=== PATIENT | female | born 1995 | race Caucasian/White ===

== ENCOUNTER 2018-10-20 09:10 | Emergency (ER) | payer OTHER, MEDICAID, SELFPAY ==
[2018-10-20 09:11] VITALS: BP 157/81; PULSE 99; RESP 16; TEMP 36.4; O2SAT 98; BMI 31.6
--- NOTE | 2018-10-20 09:24 | US_ITS ---
STUDY: FIRST TRIMESTER OBSTETRICAL ULTRASOUND REASON FOR EXAM: Female, 23 years old. Bleeding. LMP: September 16, 2018. TECHNIQUE: Transvaginal TECHNICAL QUALITY: Adequate. PRIOR ULTRASOUND: None. FINDINGS: There is no demonstrated intrauterine gestational sac. There is no demonstrated yolk sac. The placenta is non-visualized. There is no demonstrated embryo ( pole). The estimated gestation age (EGA) by LMP is 4 weeks, 6 days. The estimated date of delivery (PINA) by LMP is June 23, 2019. The uterus measures 8.8 cm x 5.3 cm x 4.2 cm. The endometrium measures 5 mm. There is no demonstrated uterine fibroid. The cervix is closed. The right ovary measures 3.8 cm x 2.5 cm x 2.1 cm. There is no right ovarian cyst. There is no visualized right adnexal mass or complex lesion. The left ovary measures 3.8 cm x 3.6 cm x 1.6. There is no left ovarian cyst. There is no visualized left adnexal mass or complex lesion. There is no fluid in the cul de sac. US/Transvaginal w/Preg US IMPRESSION: No intrauterine gestational sac is seen. Electronically Signed: Joshua Kaye, at 11:04 EDT , Service support ,
--- NOTE | 2018-10-20 09:25 | ED.DCSUM_ITS ---
- ER Visit Summary Date of Service: 10/20/18 Chief Complaint: Vaginal bleeding History of Present Illness: The patient is a 23 F who goes to the [facility]. She reports that her last menstrual period was September 16. She took a test earlier this week and it was positive. She states that she began having vaginal bleeding this morning. She is having to change a liner pad every 20 minutes. This is heavier than her typical period. She reports that she does have cramping suprapubic pain that is 6 out of 10 at worst and 5-10 currently. This is worsened by nothing and relieved by nothing. She reports this is similar to when she had a miscarriage in the past. Patient is a with a history of 1 miscarriage. Her blood type is O+. Patient denies dysuria or frequency. Physical Examination: Vitals: Stable. Afebrile. General: Well-nourished and well-developed. Head: Normocephalic atraumatic. Neck: Supple, no lymphadenopathy. No JVD. Nontender. Cardiovascular: Regular rate and rhythm. No murmurs. Respiratory: No respiratory distress. Clear to auscultation bilaterally. Abdominal: Soft, mild suprapubic tenderness to palpation., nondistended, normal bowel sounds. No guarding, rebound, or peritoneal signs. Back: Nontender. Extremities: Nontender, no edema. Skin: Normal color, no rash. Neurologic: Alert and oriented ?3. Cranial nerves II through XII are intact. Normal strength and sensation. Psych: Normal affect. Test Results: Quantitative hCG is 4. Clinical Impression(s) from Imaging Studies Obstetrics Ultrasound 10/20/18 09:24 IMPRESSION: No intrauterine gestational sac is seen. Electronically Signed: Joshua Kaye, at 11:04 EDT , Service support , Emergency Department Course and Treatment: Patient had an IV placed. She was given a liter of normal saline. She is resting comfortably. She refused pain medications. Treatment Plan: At this time I suspect the patient had failure of implantation of her . She will be discharged with instructions to follow-up with the [facility] in 1 week for another exam. Return to the emergency department for any worsening symptoms. Disposition: To home in improved and stable condition. Impression: 1. Vaginal bleeding. This note was generated with [employer] dictation software. It may contain incorrect words, spelling, and punctuation that were not noted in review of the chart prior to signing ED Disposition - Plan for ED Patient: Disposition: Home or Assisted Living Instructions: Discharge Instructions for Miscarriage Referrals: Kim Mir CNM [Certified Nurse Manager Machine] - 1 Week
[2018-10-20] MEDS: 0.9% Normal Saline 1,000 ML 1000 ML IV (09:43)
[2018-10-20 10:06] LABS: hCG Titer Quant., Serum 4 mIU/mL (<9 non-preg)
== END 2018-10-20 11:14 | disposition home or self-care (01) ==
LOC: ED 10:32
PROVIDERS: Emergency Provider Emergency Medicine
DX: N93.9 Abnormal uterine and vaginal bleeding, unspecified (principal)
CPT/HCPCS: 76817; 84702; 96360; 99283; J7030

== ENCOUNTER 2019-08-16 02:30 | Outpatient (CLI) | payer OTHER, MEDICAID, SELFPAY ==
[2019-08-16 03:47] VITALS: BMI 38.7
--- NOTE | 2019-08-16 08:46 | OB.TRI.NOTE ---
- Problem List (1) Uterine contractions during Status: Acute (2) 38 weeks gestation of Status: Acute History of Present Illness Date of Service: 08/15/19 Was patient seen by the physician?: No Reason For Visit: R/O LABOR Date of Service: 08/15/19 Final PINA: 08/24/19 Final PINA Source: LMP Gestational age: 38 Weeks and 6 Days History of Present Illness: presents for rule out labor at 38 wk gestation Allergies No Known Allergies Allergy (Verified 08/16/19 03:50) NST - FHR Rate Baby A Baseline: 130 Variability:: Moderate Accelerations:: 15 x 15 Decelerations:: None NST Reactive:: Yes FHR Category:: Category I Uterine Activity:: Irritability Impression/Plan NST reactive Labor ruled out
== END 2019-08-16 05:30 | disposition home or self-care (01) ==
LOC: WPOUT 03:26 → WP 03:27
PROVIDERS: Visit Provider Obstetrics & Gynecology
DX: O62.9 Abnormality of forces of labor, unspecified (principal); Z3A.38 38 weeks gestation of pregnancy
CPT/HCPCS: 59025; 59050; 99218; G0378

== ENCOUNTER 2019-08-17 01:34 | Inpatient (IN) | payer OTHER, MEDICAID, SELFPAY ==
[2019-08-16 03:47] VITALS: BMI 38.7
[2019-08-17] MEDS: Lactated Ringers 1,000 ML 200 ML IV (03:30)
[2019-08-17 03:31] VITALS: BMI 38.7
[2019-08-17 03:54] LABS: Absolute Lymphocyte Count 2.73 X10^3/uL (0.83-4.51); Absolute Neutrophil Count 6.9 X10^3/uL (2.0-7.7); Basophil# 0.02 X10^3/uL; Basophil% 0.2 % (0-1); Eosinophil# 0.04 X10^3/uL; Eosinophils% 0.4 % (0-5); Hematocrit 40.1 % (37-47); Hemoglobin 13.1 g/dL (12.0-15.0); Lymphocyte # 2.73 X10^3/ul (4.0); Lymphocyte % 26.1 % (19-41); Mean Corp Hgb Conc 32.7 g/dL (32-36); Mean Corpuscular Hgb 29.8 pg (27.0-32.0); Mean Corpuscular Volume 91.1 fL (81-99); Mean Platelet Vol. 11.5 fl (6.2-12.0); Monocyte# 0.76 X10^3/uL; Monocyte% 7.3 % (0-10); NRBC Flagged by Analyzer 0 % (0-5); Neutrophil % 65.8 % (47-70); Platelet Count 188 K/mm3 (150-450); RBC Distribution Width CV 13.7 % (11.6-14.6); RBC Distribution Width SD 45.7 fl (35.1-43.9); White Blood Count 10.5 K/mm3 (4.4-11.0)
[2019-08-17] MEDS: Lactated Ringers 500 ML 999 ML IV ×2 (07:28→08:28)
[2019-08-17] MEDS: Lactated Ringers 1,000 ML 50 ML IV (07:30)
--- NOTE | 2019-08-17 08:41 | PCM.HP.OB ---
- Problem List (1) History of delivery Status: Acute (2) Obesity affecting Status: Acute (3) History of precipitous delivery Status: Acute History Date of Admission: 08/17/19 Final PINA: 08/24/19 Final PINA Source: US <20 weeks Gestational age: 39 Weeks and 0 Days History of this : This is a 24 year-old, G[4], P[1112], at 39 weeks with PROM at 2330, clear fluid. uncomplicated Allergies No Known Allergies Allergy (Verified 08/17/19 06:13) Home Medications: Home Medications Vits [Prenatabs FA] 1 tablet PO DAILY 10/20/18 Smoking Status: Never smoker Alcohol: None Number of Fetus(es): 1 NST - FHR Rate Baby A Baseline: 135 Variability:: Minimal FHR Category:: Category II Uterine Activity:: Every 4 minutes History Past Pregnancies: Past Pregnancies Delivery Date Name GA/ Weeks Outcome Route Wt Sex Labor Length Anesthesia Delivery Location Provider FOB Labs: Mom's Problem List Problem Status Onset Code History of delivery Acute Z87.51 Obesity affecting Acute O99.210 History of precipitous delivery Acute Z87.59 Mom's Labs & Results 08/17/19 08/17/19 03:30 03:30 WBC 10.5 RBC 4.40 Hgb 13.1 Hct 40.1 MCV 91.1 MCH 29.8 MCHC 32.7 RDW Std Deviation 45.7 H RDW Coeff of Jerrica 13.7 Plt Count 188 MPV 11.5 Immature Gran % (Auto) 0.200 Neut % (Auto) 65.8 Lymph % (Auto) 26.1 Gila % (Auto) 7.3 Eos % (Auto) 0.4 Baso % (Auto) 0.2 Absolute Neuts (auto) 6.9 Absolute Lymphs (auto) 2.73 Nucleated RBC % 0 Blood Type O POSITIVE Antibody Screen NEGATIVE Course Did the patient receive Yes care? Labs Blood Type: O RH: POSITIVE RPR/VDRL/Syphilis Nonreactive Rubella status Immune HbSAg Negative Date Done: 02/12/19 Chlamydia Negative Gonorrhea Negative HIV/AIDS Non-Reactive Group B Strep: Negative Current Obstetrical History Gestational Diabetes No Incompetent Cervix No Infertility No IUGR No Macrosomia No Hypertension/Pre-eclampsia No Placenta Previa/Abruption No PTL/PROM No Uterine anomaly No Oligohydramnios No Polyhydramnios No Multiple gestation No Past Medical History Asthma No Diabetes No Hypertension No Heart disease No Mitral valve prolapse No Neurologic/Seizure disorder/ No Migraines Kidney disease No Liver disease No Varicosities No Clotting disorders/Hx of DVT No Thyroid Dysfunction No Other medical diseases No Psychiatric disorders No Major trauma No Abnormal PAP smear No Sleep apnea No Mammogram in the last 2 years No Social History Marital Status: Alleged father Zachariah Hx Smoking No Smoking Status Never smoker Expected Infant Delivery Method: Spontaneous Vaginal Review of Systems Constitutional: Denies: Chills, Fever, Weight Change HEENT: Denies: Head Aches Cardiovascular: Denies: Chest Pain, Palpitations Respiratory: Denies: Cough, Shortness of breath at rest, Sputum production Gastrointestinal: Denies: Abdominal Pain, Nausea, Vomiting Genitourinary: Denies: Dysuria Neurological: Denies: Numbness, Tingling, Focal weakness Psychiatric: Denies: Anxiety, Depression, Homicidal Ideations, Suicidal Ideations Physical Exam General: Alert, Oriented x3, Cooperative HEENT: Atraumatic, Normocephalic Cardiovascular: Regular rate, Regular Rhythm, No murmurs Lungs: Clear to auscultation, Normal air movement, No rhonchi, No wheeze Abdomen: Bowel Sounds Present, Gravid Extremities:: No edema COMPOSITION FLOOR SETTER: Normal external genitalia. Negative for: Vulvar lesions Estimated gestational size: Appropriate for gestational size Presentation: Cephalic Cervix Dilation (cm): 6 - vertex Station: -2 Effacement (%): 60 - Comfortable with epidural Assessment/Plan All Active Problems Uterine contractions during (Acute) 38 weeks gestation of (Acute) History of delivery (Acute) Obesity affecting (Acute) History of precipitous delivery (Acute) Term (Acute) This is a 24 year-old, G [4], P [1112], at 39 weeks gestational age Premature Rupture of Membranes Active Labor, progressing P: 1) Admit to labor and delivery. IV fluids per protocol 2) Admission labs 3) GBS negative 4) Epidural for pain management 5) notified of patient admission and status.
[2019-08-17] MEDS: fentaNYL-bupivacaine (epidural) 100 ML BAG EPIDURAL (08:51)
[2019-08-17] MEDS: Oxytocin 30 units/NS 500 ml 30 UNITS/500 ML IV.SOLN IV (09:45)
[2019-08-17] MEDS: Oxytocin 30 units/NS 500 ml 30 UNITS/500 ML IV.SOLN 334 UNITS IV (10:50)
--- NOTE | 2019-08-17 11:04 | OP.PCM_ITS ---
Problem List (1) History of delivery Status: Acute (2) Obesity affecting Status: Acute (3) History of precipitous delivery Status: Acute (4) Vaginal delivery Status: Acute (5) Shoulder dystocia, delivered Status: Acute Vaginal Delivery Maternal Presentation: Spontaneous Rupture of Membranes Amniotic Membrane Rupture Type: Spontaneous at home Amniotic Fluid Description: Clear Final PINA: 08/24/19 Gestational age: 39 Weeks and 0 Days Date of Procedure: 08/17/19 Pre-Operative Diagnosis: PROM Post-Operative Diagnosis: Surgery/ Procedure Performed: Spontaneous Vaginal Delivery Type of Anesthesia: Epidural Description of Procedure: Progressed to complete with urge to push and +1 station. Strong pushing efforts and descent with initial pushing. Called nursery staff to room for anticipation of delivery soon. Pushing efforts to and then maternal effort diminished and became drowsy with eyes closing. Opened eyes to commands but drowsy and poorly following commands to push. Infant head delivered with shoulder's not forthcoming. Staff assist alerted for extra help. McRobert's position and poor maternal pushing efforts. Suprapubic pressure applied. Internal maneuvers attempted and still limited maternal pushing efforts. D elivered right posterior arm without difficulty. Maternal pushing efforts still diminished but became more alert and able to push out infant body. From delivery of infant head to delivery of body approximately 1 minute. Infant cord clamped and cut and given to awaiting nursery staff and hogshead stock clerk . Strong cry with APGARS 8, 9. Cord gases obtained. Pitocin started for active 3rd stage management. Patient alert and awake after delivered. Placenta delivered intact, 3 vessel cord with maternal effort via yandel. Fundus firm and hemostasis achieved. EBL 300ml. Perineum inspected and revealed intact perineum. Vaginal sweep completed. Sponge and instrument count correct. Mom and baby stable. Baby skin to skin, , family bonding well. notified of delivery. Presentation: Vertex Placental Delivery Description: Spontaneous Placenta Disposition: [facility] Cord Vessel Description: 3 Vessels Cord Gases drawn per routine: ABG - due to shoulder dystocia approximately 1 minute, VBG Cord Entanglement: None Estimated Blood Loss: 300 ml A gender: Female (1 minute): 8 (5 minute): 9 Episiotomy Description: None Laceration: None Medications given after delivery: IV Pitocin Complications: - - Shoulder dystocia approximately 1 minute from delivery of head to body.
[2019-08-17] MEDS: 0.9% Saline Lock 10 ML Syringe IV (13:43)
[2019-08-17 15:24] VITALS: BP 134/69; PULSE 68; RESP 16; TEMP 37.1
[2019-08-17 20:30] VITALS: BP 129/72; PULSE 81; RESP 16; TEMP 36.6
[2019-08-17 23:34] VITALS: BP 96/47; PULSE 67; RESP 12; TEMP 36.6
[2019-08-18 03:46] VITALS: BP 132/49; PULSE 67; RESP 16; TEMP 36.9
[2019-08-18] MEDS: Acetaminophen 500 MG Tablet 1000 MG PO (05:21)
[2019-08-18 05:34] LABS: Hematocrit 37.8 % (37-47); Hemoglobin 12.5 g/dL (12.0-15.0); Mean Corp Hgb Conc 33.1 g/dL (32-36); Mean Corpuscular Hgb 30.4 pg (27.0-32.0); Mean Platelet Vol. 11.1 fl (6.2-12.0); Platelet Count 159 K/mm3 (150-450); RBC Distribution Width CV 13.8 % (11.6-14.6); RBC Distribution Width SD 46.2 fl (35.1-43.9); Red Blood Count 4.11 M/mm3 (4.2-5.4); White Blood Count 13.5 K/mm3 (4.4-11.0)
[2019-08-18 09:15] VITALS: BP 114/54; PULSE 62; RESP 20; TEMP 36.6
--- NOTE | 2019-08-18 11:39 | PCM.PN.OB ---
Patient Problems: Active and Suspected Problems History of delivery (Acute) Obesity affecting (Acute) History of precipitous delivery (Acute) Vaginal delivery (Acute) Shoulder dystocia, delivered (Acute) Subjective: Doing well per patient and nursing staff. Ambulating and taking PO without difficulty. Denies headache, visual changes, chest pain, shortness of breath or increased lochia. without difficulty. Pain controlled. Planning D/C home. - Physical Exam Vitals/I&O's: Vital Signs Temp Pulse Resp BP 97.9 F 62 20 H 114/54 L 08/18/19 09:15 08/18/19 09:15 08/18/19 09:15 08/18/19 09:15 Oxygen Delivery Method Room Air Weight: 205 lb Body Mass Index (BMI) 38.7 Intake and Output for Last 24 Hours 08/16/19 08/17/19 08/18/19 23:59 23:59 23:59 Intake Total 2049. / 2049. Output Total 1999 Balance 50.00 / 50.00 General: Alert, Oriented x3, Cooperative HEENT: Atraumatic, Normocephalic Neck: Trachea Midline Lungs: Clear to auscultation, Normal air movement, No rhonchi, No wheeze Cardiovascular: Regular rate, Regular Rhythm, No murmurs Abdomen: Bowel Sounds Present - fundus firm 2 below U, Soft Extremities: No edema Psych/Mental Status: Normal Affect, Appropriate Laboratory Results 08/18/19 05:20: WBC 13.5 H, RBC 4.11 L, Hgb 12.5, Hct 37.8, MCV 92.0, MCH 30.4, MCHC 33.1, RDW Std Deviation 46.2 H, RDW Coeff of Jerrica 13.8, Plt Count 159, MPV 11.1 Current Medications Acetaminophen (Tylenol) 1,000 mg PO Q8H PRN PRN PRN Reason: Pain Score 1-3/10 Last Admin: 08/18/19 05:21 Dose: 1,000 mg Documented by: Bisacodyl (Dulcolax) 10 mg RECTAL UD PRN PRN Reason: If no BM Dibucaine (Dibucaine) 1 applic TOPICAL TID PRN PRN; Protocol PRN Reason: Discomfort Hydrocortisone (Hytone) 1 applic TOPICAL TID PRN PRN; Protocol PRN Reason: Discomfort Ibuprofen (Motrin) 600 mg PO Q6H PRN PRN PRN Reason: Pain Score 1-3/10 Methylergonovine Maleate (Methergine) 0.2 mg IM X1 PRN PRN Reason: Excess bleeding/uterine atony Ondansetron HCl (Zofran) 4 mg IV Q4H PRN PRN PRN Reason: Nausea Senna/Docusate Sodium (Senokot-S, Mayelin-Colace) 1 - 2 tablet PO DAILY PRN PRN PRN Reason: Constipation Simethicone (Mylicon) 80 mg PO PCHS PRN PRN Reason: Indigestion/Stomach pain Sodium Chloride () 5 - 15 ml IV UD PRN PRN Reason: SALINE FLUSH Last Admin: 08/17/19 13:43 Dose: 10 ml Documented by: Medical Necessity - Tobacco Use Smoking Status: Never smoker Assessment/Plan All Active Problems Uterine contractions during (Acute) 38 weeks gestation of (Acute) History of delivery (Acute) Obesity affecting (Acute) History of precipitous delivery (Acute) Vaginal delivery (Acute) Shoulder dystocia, delivered (Acute) Term (Acute) A:PPD #1 P: 1) Routine discharge and instructions 2) Discharge home 3) Follow up in 2 weeks and 6 weeks 4) Planning tubal ligation
--- NOTE | 2019-08-18 11:46 | DCINST_ITS ---
Discharge Diet: No Restrictions Discharge Activity: Return to Normal Activity, May not drive while taking narcotic pain medications., May Shower, May Take a Tub Bath May resume sexual activity in: 4-6 weeks Weight Bearing Status: Full weight bearing Additional Activity Instructions:: Nothing in the vagina for 4-6 weeks. You may return to work/school in 6 weeks. Call your doctor if your incision/area has: Continuous Slow Oozing, Sudden Increased Bleeding, Increased Pain/ Swelling, Increased Redness, Foul Smelling Discharge Call your doctor if you observe: Inability to urinate, Using more than one pad per hour, Shortness of breath, Chest pain, Increased palpitations (irregular heartbeat), Calf discomfort, Uncontrolled pain Additional Instructions: If you experience any of the following, contact your healthcare provider. * Bleeding that soaks a pad every hour for 2 hours * Fever 100.4 or higher * Unrelieved incision or abdominal pain * Swelling, redness, discharge or bleeding from your incision or episiotomy site * Your incision begins to separate * Problems urinating (including inability to urinate or burning while urinating). * Visual changes * Severe headache * Flu-like symptoms * Pain or redness in one of both of your breasts * Pain, warmth, tenderness or swelling in your legs, especially the calf area * Frequent nausea and vomiting * Symptoms of depression or anxiety If you experience any of the following, call 911 or go to the nearest Emergency Room. * Chest pain * Problems breathing * Seizure activity * Partial or complete paralysis of a body part, slurred speech, weakness or drooping of the face, or a sudden inability to walk or hold your balance Allergies/Adverse Reactions: Allergies No Known Allergies Allergy (Verified 08/17/19 06:13) Medications to take at Discharge Vits [Prenatabs FA ] 1 tablet PO DAILY 10/20/18 Please Follow Up With: Deepti Hebert CNM When: Call to make an appointment with your doctor in 6 weeks. If you had elevated Blood Pressure or 4th degree laceration you will need to be seen in 2 weeks. Primary Care Physician: Care Physician,No Primary [Primary Care Provider] - Test Results: Test results from this visit will be discussed in further detail at your follow- up appointment, if applicable.
[2019-08-18 12:45] VITALS: BP 125/83; PULSE 70; TEMP 36.4
== END 2019-08-18 14:20 | disposition home or self-care (01) | DRG 807 ==
PROVIDERS: Advanced Practice Midwife; Obstetrics & Gynecology; Admitting Provider Obstetrics & Gynecology; Referring Provider Obstetrics & Gynecology; Visit Provider Obstetrics & Gynecology
DX: O42.92 Full-term premature rupture of membranes, unspecified as to length of time between rupture and onset of labor (principal); O66.0 Obstructed labor due to shoulder dystocia; O99.214 Obesity complicating childbirth; E66.9 Obesity, unspecified; Z37.0 Single live birth
CPT/HCPCS: 59050; 85025; 85027; 86850; 86900; 86901; J7120; A4216

== ENCOUNTER 2019-11-22 05:52 | Day surgery (SDC) | payer OTHER, MEDICAID, SELFPAY ==
--- NOTE | 2019-11-19 16:38 | HP.PCM_ITS ---
History and Physical Date of Admission: 11/22/19 Maru Hobbs Physician SUBMARINE OPERATOR H&P Signed Encounter Date: 11/19/2019 Expand All Collapse All Hide copied text Malik for details Monalisa Leslie is a 24 year old female who presents for consultation for laparoscopic bilateral salpingectomy. Pt declines use of LARC. Pt has three chi ldren ages <1-6. Pt understands risk of regret. Pt is scheduled for Lap bilateral salpingectomy on 11/22/19. ? PAST MEDICAL HISTORY PAST MEDICAL HISTORY Diagnosis Date ? Foot injury ? ? 2015, wore boot ? PAST SURGICAL HISTORY PAST SURGICAL HISTORY Procedure Laterality Date ? TONSILLECTOMY HX ? ? ? FAMILY HISTORY FAMILY HISTORY Problem Relation Age of Onset ? No Known Problems Mother ? ? Diabetes Father ? ? Heart Attack Father ? ? No Known Problems Sister ? ? No Known Problems Brother ? ? Diabetes Maternal Grandmother ? ? Heart Maternal Grandfather ? ? other (lung problems) Maternal Grandfather ? ? Diabetes Paternal Grandmother ? ? other (Lung problems) Paternal Grandfather ? ? No Known Problems Brother ? ? No Known Problems Son ? ? No Known Problems Son ? ? SOCIAL HISTORY Social History ? Tobacco Use ? Smoking status: Never Smoker ? Smokeless tobacco: Never Used Substance Use Topics ? Alcohol use: Not Currently ? ? Comment: occasional ? Drug use: No ? CURRENT MEDICATIONS Current Outpatient Medications Medication Sig ? Norethindrone, Contraceptive, (ORTHO MICRONOR) 0.35 mg tablet Take 1 tablet by mouth once daily. ? PNV no.95/ferrous fum/folic ac ( ORAL) Take by mouth. ? ibuprofen (MOTRIN) 600 mg tablet Take 1 tablet by mouth every 6 hours as needed. ? simethicone, chewable (MYLICON) 80 mg chewable tablet Take 1 tablet by mouth every 6 hours as needed. ? No current facility-administered medications for this visit. ? Allergies As of Date: 11/19/2019 (No Known Allergies) Fully Assessed 11/19/2019 ? ? REVIEW OF SYSTEMS Abdomen: no pain .. Expanded ROS: denies CP, SOB, dizziness. Allergies and current medication updated:Yes ? EXAM: BP 102/64 Ht 5' 1.25 (1.56m) Wt 164 lb (74.4kg) LMP 11/05/2019 BMI 30.73 kg/(m^2). GENERAL: pleasant, female in no apparent distress HEENT: Normocephalic and atraumatic NECK: full range of motion DERMATOLOGY: Normal and without lesions BREAST: deferred ABDOMEN: Deferred NEURO: alert and oriented x3,exam grossly non-focal ? ASSESSMENT AND PLAN: Encounter Diagnosis ? ? ICD-10-CM ? 1. Sterilization consult Z30.09 ? ? Risk of regret reviewed ? Pt has been counseled on risks/benefits and alternatives of surgery including but not limited to anesthesia, bleeding, infection, injury to pelvic structures including bowel, bladder, ureters and vessels. Pt wishes to proceed with surgery at this time. ? The patient was offered a surgery/procedure at a [facility]. The surgeon/proceduralist and patient have discussed in detail the risk of exposure to and/or potential harm posed by the COVID-19 virus with having a surgery/procedure at this time versus the risk of? delaying the surgery/procedure. It is not possible to know either the risk of delaying the surgery or procedure or chance of getting an infection with perfect accuracy, but a joint decision was made between the patient and the surgeon/proceduralist ?to proceed at this time with the scheduled surgery/procedure as indicated on the consent form. ? Maru Dyer MD ? Essential Procedure Criteria Procedure Essential: No Criteria Note: On 10/02/2019 the [place] Department of Health ([facility]) Public Order signed by [facility] Director Lana Reynoso M.D., regarding the Management of Non- Essential Surgeries and Procedures for the purpose of preserving Personal Protective Equipment (PPE) and critical hospital capacity and resources within [place] went into effect as of 10/03/2019 at 5:00PM. According to the [facility] Public Order: This action will remain in full force and effect until the State of Emergency declared by the Governor no longer exists or the Director of the [facility] rescinds or modifies this Order.. This [facility] order stated all non-essential or elective surgeries and procedures that utilize PPE should be delayed unless there is undue risk to the current or future health of a patient. After reviewing the aforementioned [facility] Public Order and the patients clinical case, I have determined that the scheduled procedure meets the criteria to go forward.
--- NOTE | 2019-11-22 | FALS_PTH ---
PATIENT: AWAIS VILLASENOR LOC: [facility] [place] U#:[id number] AGE/SX: 24/F ROOM: RE11/22/[address]: Dr. Maru Dyer, MDDOB: 1995 BED: DIS: 11/22/2019 SPEC #: [id number] RECD: 11/22/19 10:17 STATUS: TERESA PHIL #: [id number] SERENA: 11/22/19 00:[address]: Maru Dyer DEPT: SURGICAL PATHOLOGY RECD BY: Abhay Mcdermott ENTERED: 11/22/19 10:17 SP TYPE: FALL TUBES OTHR DR: No Primary Care Phys Tissues: Fallopian tube Procedures: Surgery Specimen Level II Surgery Specimen Level IV HEADER OPERATION: Laparoscopic salpingectomy PRE-OP DIAGNOSIS: Sterilization TISSUE SUBMITTED: Bilateral fallopian tubes MICROSCOPIC DIAGNOSIS Right and left fallopian tubes, bilateral salpingectomies: Benign paratubal cyst. Complete cross-sections of bilateral fallopian tubes. AM:asael 11/23/19 MICROSCOPIC DESCRIPTION Slides are reviewed. GROSS DESCRIPTION Received in fixative is one container labeled with the patient's name and designated bilateral fallopian tubes. The specimen consists of bilateral fallopian tubes including fimbrial ends. The fallopian tubes are not identified as right or left. One fallopian tube measures 6.5 cm in length and 0.5 cm in diameter. The second fallopian tube measures 5.5 cm in length and 0.5 cm in diameter. Two detached pieces of fallopian tube are also noted. One is consistent with fimbrial end measuring 1.5 x 1 x 0.2 cm. The second piece consists of a tubular piece of tissue measuring 1 cm in length and 0.4 cm in diameter. Sections reveal unremarkable cut surfaces. Timber Sprinkler sections are submitted in two cassettes with each cassette containing one fallopian tube. / SJ:asael 11/22/19 TC:5 CPT: 49721, 40732
[2019-11-22 06:12] VITALS: BP 128/72; PULSE 84; RESP 16; TEMP 36.8; O2SAT 97; BMI 30.9
[2019-11-22 06:15] LABS: Internal QC Validated? YES +Cl - CLEAR BKGD; Pregnancy, Urine Negative Negative
[2019-11-22] MEDS: Lactated Ringers 1,000 ML 100 ML IV (06:24)
[2019-11-22] MEDS: Lubricating Jelly 60 GM Tube 30 GM TOPICAL (07:40)
[2019-11-22] MEDS: Bupivacaine Mpf 0.5% 30 ML VIAL (07:50)
--- NOTE | 2019-11-22 08:08 | OP.PCM_ITS ---
Report of Operation Date of Procedure: 11/22/19 Pre-Operative Diagnosis: DESIRES STERILIZATION Post-Operative Diagnosis: SAME Surgery/Procedure Performed:: LAPAROSCOPIC BILATERAL SALPINGECTOMY Description of Surgical Findings:: NORMAL PELVIC ANATOMY Type of Anesthesia:: General Special Medications: 0.5% MARCAINE Specimen's removed: BILATERAL FALLOPIAN TUBES Drains: NONE Estimated Blood Loss (mL): <5CC Fluids Replaced: 900 Description of Procedure: After informed consent was obtained patient was taken to the operating room she was placed in supine position she was given anesthesia. She was then placed in the [facility] and she was prepped and draped in normal sterile fashion. Bladder was drained prior to the start of procedure. At this time attention was turned to the vaginal portion where weighted speculum placed at posterior fornix vagina single-tooth tenaculum was used to gently grasp the internal the cervix. uterus was gently sounded to approximately 8cm. Uterine manipulator was placed without difficulty. Legs then placed in parallel with the abdomen the tenaculum and the weighted speculum were removed. 2 towel clamps were placed at level of umbilicus. Marcaine was injected infraumbilical and a small incision was made. The 5 mm trocar was placed under direct visualization. CO2 gas was used to insufflate the intra-abdominal cavity. Upon inspection no gross abnormalities appreciated- the uterus tubes and ovaries appeared to be normal. At this time then the LLQ and RLQ ports were placed First Marcaine was injected and small incision was made a knife and the 5 mm trocars were placed. At this time then tubes were traced back to the fimbriated ends. Ligasure was used to coagulate and ligate along mesosalpynx bilaterally until tubes removed completely. Good hemostasis was appreciated. At this time procedure was deemed complete successful. The gas was desufflated on from the intra-abdominal cavity. The trochars were removed. Skin was closed using 4-0 Monocryl in a subcutaneous fashion. Dermabond glue was placed. Instrument lap and needle counts were correct ?2. The uterine manipulator was removed. Vaginal sweep was performed it was negative. There were no complications anticipated normal postoperative course for this patient. Grafts/Implants Used: NONE - Complications NONE - Admit VTE Documentation VTE Present on Admission: Yes VTE Mechan Device Prophylaxis: SCD's VTE Pharm Prophylaxis ordered?: No
--- NOTE | 2019-11-22 08:12 | DCINST_ITS ---
Discharge Diet: No Restrictions, - - Increase fluid intake for 48 hours. Discharge Activity: Return to Normal Activity, May Drive - when you are no longer taking narcotic pain medications., May Shower, May Take a Tub Bath - in 7 days., - - Ambulate often the next week after surgery. Additional Activity Instructions:: Nothing in the vagina for the next 5 days. Call your doctor if your incision/area has: Continuous Slow Oozing, Sudden Increased Bleeding, Increased Pain/ Swelling, Increased Redness, Foul Smelling Discharge, Swelling at the incision site Call your doctor if you observe: Fever of 101 or Higher Allergies/Adverse Reactions: Allergies No Known Allergies Allergy (Verified 11/22/19 06:11) Medications to take at Discharge Vits [Prenatabs FA ] 1 tablet PO DAILY 10/20/18 Primary Care Physician: Care Physician,No Primary [Primary Care Provider] - Test Results: Test results from this visit will be discussed in further detail at your follow- up appointment, if applicable.
[2019-11-22 08:23] VITALS: BP 106/89; BP 128/72; PULSE 80; RESP 16; TEMP 36.1; O2SAT 100
[2019-11-22 08:30] VITALS: BP 117/62; BP 128/72; PULSE 78; RESP 16; O2SAT 98
[2019-11-22 08:45] VITALS: BP 109/69; BP 128/72; PULSE 75; RESP 16; O2SAT 99
[2019-11-22 08:53] VITALS: BP 113/69; BP 128/72; PULSE 60; RESP 16; TEMP 36.7; O2SAT 97
== END 2019-11-22 09:17 | disposition home or self-care (01) ==
LOC: SDC 05:53 → AC 05:55
PROVIDERS: Referring Provider Obstetrics & Gynecology; Visit Provider Obstetrics & Gynecology
PROC: (CPT 58661; principal; 2019-11-22 07:15)
DX: Z30.2 Encounter for sterilization (principal); Z79.899 Other long term (current) drug therapy
CPT/HCPCS: 58661; 81025; 88302; 88305; J7120; J2405

== ENCOUNTER 2022-03-28 03:20 | Observation (INO) | payer BC, MEDICAID, SELFPAY ==
[2022-03-28] VITALS (8 sets, daily range): BP systolic 108–136; BP diastolic 66–88; PULSE 54–98; RESP 16–18; TEMP 36.6–37.2; O2SAT 97–100; BMI 30.1
--- NOTE | 2022-03-28 03:29 | EDS_ITS ---
HPI HPI - GI History of Present Illness Chief Complaint: Abd Pain Informant: patient Abdominal Pain/Flank Pain Onset: Hours (9-10) Context: Gradual Onset Timing: Continuous and Waxes and wanes Quality: Aching Location: Epigastric (Radiating straight through to back. No migration.) Current Severity: Moderate Maximum Severity: Severe Worsened by: - (Lying down) Relieved by: Nothing Nausea/Vomiting/Emesis GI Symptom: Positive for Nausea; Negative for Vomiting Diarrhea/Melena/Hematochezia GI Symptom: Negative for Diarrhea, Melena or Hematochezia Associated Symptoms Associated Symptoms: Negative for Dysuria, Frequency, Hematuria or Urgency Narrative Narrative: Ate pizza for dinner early, about an hour and a half later started having epigastric discomfort that has been colicky and worse when she was sleeping, waking her up tonight. Never had this before. No history of reflux. Has had prior sterilization procedure but no other abdominal surgeries and not recent. Denies any chest symptoms. No urinary problems, no bright red blood per rectum, diarrhea, melena. No fevers, chills, confusion. PFSH PFSH Medical History no medical history no medical history Home Medications NK 03/28/22 [History Last Taken Unknown] Allergy/AdvReac Type Severity Reaction Status Date / Time No Known Allergies Allergy Verified 11/22/19 06:11 Family History (Updated 08/17/19 @ 05:43 by Angelina Spivey) Other father Surgical History H/O tubal ligation Social History Smoking Status: Never smoker ROS ROS ED Constitutional Constitutional ED: Denies chills or fever(s) Eyes Eyes: Denies change in vision or diplopia ENT ENT ED: Denies rhinorrhea or sore throat Cardiovascular Cardiovascular: Denies chest pain or palpitations Respiratory/Chest Respiratory/Chest: Denies cough or dyspnea Gastrointestinal Gastrointestinal: Reports abdominal pain and nausea; Denies diarrhea or vomiting Genitourinary Genitourinary ED: Denies dysuria or hematuria Musculoskeletal Musculoskeletal: Reports back pain; Denies neck pain Integumentary Denies abscess or rash Neurologic Neurologic: Denies headache(s), paresthesias or weakness Psychiatric Psychiatric: Denies anxiety or suicidal thoughts EXAM Physical Exam Const Vital Signs: 03/28/22 03:21 Temperature 98.7 F Temperature Source Oral Pulse Rate 98 Respiratory Rate 16 Blood Pressure 136/88 H Blood Pressure Mean 104 Pulse Ox 100 Oxygen Delivery Method Room Air Positive well nourished and well developed General Appearance ED: well developed and NAD HEENT Reports moist mucous membranes normocephalic and atraumatic Eyes PERRL and EOMs intact bilaterally Neck full ROM and supple Resp normal respiratory effort and clear to auscultation bilaterally Cardio regular rate, regular rhythm and no murmurs GI non-distended GI Narrative: Epigastric tenderness. Some mild voluntary guarding, no rebound, no other areas of tenderness. Negative Castro. Auscultation: normoactive bowel sounds Palpation: soft Back/Spine no CVA tenderness General Back: other FROM Extremity normal to inspection General Extremety ED: Negative for edema, pulses abnormal or tenderness General Extremity: Negative for edema or pulses abnormal Neuro oriented x3, CN's II-XII intact bilaterally and no sensory deficits noted Sensorium / Orientation: awake and alert Motor Exam: strength 5/5 throughout Skin no rashes or lesions noted and no wounds MDM MDM MDM Narrative Medical decision making narrative: Prior to treating this patient, just after the exam I did a bedside ultrasound since the patient presents when ultrasound and radiology is not available. She does have gallstones, at least 2 large cholesterol stones, and one of them is lodged in the neck of the gallbladder. She has a positive sonographic Castro's. I did not see pericholecystic fluid. Therefore, seen as this is likely biliary colic at the very least, as opposed to upper GI etiology, she was given Toradol, morphine, as well as Zofran and IV fluids as we awaited laboratory work-up. Afterwards, she felt much better. I reexamined her. She does have persistent tenderness where I ultrasound of the gallbladder and her medial right upper quadrant. Discussed with surgery Dr. Fletcher, she agrees with admission and antibiotics, but requests an official ultrasound, which we will get when they are available in the morning and we will keep the patient in the emergency department until those results are available. Lab Data Attestation: I reviewed the patient's lab results. Labs: Laboratory Results - last 24 hr 03/28/22 03/28/22 03:30 03:30 WBC 10.7 RBC 4.70 Hgb 14.2 Hct 42.6 MCV 90.6 MCH 30.2 MCHC 33.3 RDW Std Deviation 39.2 RDW Coeff of Jerrica 11.8 Plt Count 233 MPV 10.2 Immature Gran % (Auto) 0.100 Neut % (Auto) 46.2 L Lymph % (Auto) 43.5 H [place] % (Auto) 7.6 Eos % (Auto) 2.3 Baso % (Auto) 0.3 Absolute Neuts (auto) 4.9 Absolute Lymphs (auto) 4.64 H Nucleated RBC % 0 Sodium 139 Potassium 3.4 L Chloride 105 Carbon Dioxide 27.0 Anion Gap 7 BUN 16 Creatinine 0.90 Estim Creat Clear Calc 70.22 Est GFR (MDRD) Af Amer 95 Est GFR (MDRD) Non-Af 79 BUN/Creatinine Ratio 17.7 Glucose 101 Calcium 9.2 Total Bilirubin 0.20 AST 13 L ALT 23 Alkaline Phosphatase 79 Total Protein 7.1 Albumin 3.8 Globulin 3.3 Albumin/Globulin Ratio 1.2 Lipase 121 Discharge Plan Dx/Rx/DC Orders Clinical Impression: Acute calculous cholecystitis Disposition Disposition: Acute Care [facility]
[2022-03-28 03:41] LABS: Absolute Lymphocyte Count 4.64 X10^3/uL (0.83-4.51); Absolute Neutrophil Count 4.9 X10^3/uL (2.0-7.7); Basophil# 0.03 X10^3/uL; Basophil% 0.3 % (0-1); Eosinophil# 0.24 X10^3/uL; Eosinophils% 2.3 % (0-5); Hematocrit 42.6 % (37-47); Hemoglobin 14.2 g/dL (12.0-15.0); Lymphocyte # 4.64 X10^3/ul (0.83-4.51); Lymphocyte % 43.5 % (19-41); Mean Corp Hgb Conc 33.3 g/dL (32-36); Mean Corpuscular Hgb 30.2 pg (27.0-32.0); Mean Corpuscular Volume 90.6 fL (81-99); Mean Platelet Vol. 10.2 fl (6.2-12.0); Monocyte# 0.81 X10^3/uL; Monocyte% 7.6 % (0-10); NRBC Flagged by Analyzer 0 % (0-5); Neutrophil # 4.93 X10^3/uL (2.7-7.7); Neutrophil % 46.2 % (47-70); Platelet Count 233 K/mm3 (150-450); RBC Distribution Width CV 11.8 % (11.6-14.6); RBC Distribution Width SD 39.2 fl (35.1-43.9); White Blood Count 10.7 K/mm3 (4.4-11.0)
[2022-03-28] MEDS: Ketorolac 30 MG/ML Syringe IV (03:54)
[2022-03-28] MEDS: Ondansetron 4 MG/2 ML Vial IV ×2 (03:54→19:03)
[2022-03-28] MEDS: Morphine 4 MG/ML Syringe IV (03:54)
[2022-03-28] MEDS: 0.9% Normal Saline 1,000 ML 200 ML IV (03:55)
[2022-03-28 04:25] LABS: ALB/GLOB Ratio 1.2 RATIO (0.9-2.4); AST(SGOT) 13 U/L (15-37); Alanine Aminotransfer ALT/SGPT 23 U/L (13-56); Albumin, Serum 3.8 g/dL (3.2-5.0); Alkaline Phosphatase 79 U/L (45-117); Anion Gap 7 (5-15); BUN 16 mg/dL (7-18); BUN/Creat Ratio 17.7 RATIO (10-20); Calcium,Total 9.2 mg/dL (8.5-10.1); Chloride 105 mmol/L (98-107); EST Glomerular Filtration Rate 79 mL/min (>60); Est Glom Filt Rate - Afr Amer 95 mL/min (>60); Estimated Creatinine Clearance 70.22 ml/min; Globulin 3.3 g/dL (2.2-4.2); Glucose 101 mg/dL (74-106); Lipase 121 U/L (73-393); Potassium 3.4 mmol/L (3.5-5.1); Protein, Total 7.1 g/dL (6.4-8.2); Sodium Level 139 mmol/L (136-145)
--- NOTE | 2022-03-28 04:57 | US_ITS ---
STUDY: ABDOMINAL ULTRASOUND - RIGHT UPPER QUADRANT REASON FOR VISIT: Female, 26 years old right upper quadrant pain, nausea TECHNIQUE: Ultrasound evaluation of the right upper quadrant was performed with real-time and static diana-scale imaging. TECHNICAL QUALITY: Adequate. COMPARISON: None. FINDINGS: Liver: The liver measures 17.5 cm. There is normal echogenicity of the liver. The bile ducts are within normal limits. There is hepatic color flow. The direction of portal flow is hepatopetal. There is no demonstrated mass lesion. Gallbladder: Normal distended gallbladder. The gallbladder wall measures 2.3 mm. There is a positive sonographic Castro''s sign. There is no pericholecystic fluid. There are gallstones. There is sludge within the gallbladder as well. Common Bile Duct (C.B.D.): The common bile duct measures 4.1 mm. Pancreas: Normal size of the head, body and tail of the pancreas. There is normal echogenicity of the pancreas. There is no demonstrated pancreatic mass or cyst. Right Kidney: Normal size of the right kidney. The right kidney measures 10.1 cm in length. Normal renal cortex. There is no demonstrated renal mass or cyst. There is no right hydronephrosis. US/Gallbladder IMPRESSION: Cholelithiasis associated with sludge within the gallbladder and a reported positive sonographic Castro''s sign and no gallbladder wall thickening nor pericholecystic fluid. Electronically Signed: Juany Tian MD at 8:56 EDT ,
--- NOTE | 2022-03-28 06:37 | NURSING ---
[address] ACUTE CALCULOUS CHOLECYSTITIS
--- NOTE | 2022-03-28 08:52 | PCM.HP.STD ---
HPI - General General Date of Admission: 03/28/22 HPI Narrative AWAIS VILLASENOR, is a 26 F who presents to the ER due to right upper quadrant pain and epigastric pain about an hour after eating pizza last night. Pain started about 6 PM. Patient states she did have some nausea denies any vomiting. Patient's labs in the ER were within normal limits, bedside ultrasound by the ER physician showed 2 large gallstones within the neck of the gallbladder. Official ultrasound showed the same gallbladder wall was measured at 2.3 mm, common bile duct was 4 mm, no pericholecystic fluid. Patient's only abdominal surgery is a tubal ligation. [facility] Medical History no medical history Home Medications NK 03/28/22 [History Last Taken Unknown] Allergy/AdvReac Type Severity Reaction Status Date / Time No Known Allergies Allergy Verified 11/22/19 06:11 Family History (Updated 08/17/19 @ 05:43 by Angelina Spivey) Other father Surgical History H/O tubal ligation Social History Smoking Status: Never smoker Vital Signs Vital Signs Vital Signs: 03/28/22 03:21 03/28/22 05:06 03/28/22 05:20 Temperature 98.7 F 98.2 F Temperature Source Oral Oral Pulse Rate 98 85 78 Respiratory Rate 16 16 16 Blood Pressure 136/88 H 132/81 H 122/86 H Blood Pressure Mean 104 98 98 Pulse Ox 100 98 97 Oxygen Delivery Method Room Air Room Air Room Air 03/28/22 07:20 Temperature Temperature Source Pulse Rate 59 L Respiratory Rate 16 Blood Pressure 113/78 Blood Pressure Mean 89 Pulse Ox 97 Oxygen Delivery Method Room Air Weight Weight: 159 lb 6.307 oz Body Mass Index (BMI) 30.1 Physical Exam Const alert, oriented x3 and no apparent distress HEENT normocephalic and head/scalp atraumatic Resp normal respiratory effort Cardio regular rate GI soft to palpation; Negative for non-distended GI Narrative: Patient does have small patches of poison tristin on her upper abdomen Palpation: tender epigastric and RUQ; Negative for guarding Extremity no clubbing, cyanosis or edema Neuro CN's II-XII intact bilaterally Psych mental status grossly normal Results Lab / Micro Data Result Diagrams: 03/28/22 03:30 03/28/22 03:30 Labs: Laboratory Results - last 24 hr 03/28/22 03:30: WBC 10.7, RBC 4.70, Hgb 14.2, Hct 42.6, MCV 90.6, MCH 30.2, MCHC 33.3, RDW Std Deviation 39.2, RDW Coeff of Jerrica 11.8, Plt Count 233, MPV 10.2, Immature Gran % (Auto) 0.100, Neut % (Auto) 46.2 L, Lymph % (Auto) 43.5 H, [place] % (Auto) 7.6, Eos % (Auto) 2.3, Baso % (Auto) 0.3, Absolute Neuts (auto) 4.9, Absolute Lymphs (auto) 4.64 H, Nucleated RBC % 0 03/28/22 03:30: Sodium 139, Potassium 3.4 L, Chloride 105, Carbon Dioxide 27.0, Anion Gap 7, BUN 16, Creatinine 0.90, Estim Creat Clear Calc 70.22, Est GFR (MDRD) Af Amer 95, Est GFR (MDRD) Non-Af 79, BUN/Creatinine Ratio 17.7, Glucose 101, Calcium 9.2, Total Bilirubin 0.20, AST 13 L, ALT 23, Alkaline Phosphatase 79, Total Protein 7.1, Albumin 3.8, Globulin 3.3, Albumin/Globulin Ratio 1.2, Lipase 121 Assessment & Plan Assessment/Plan (1) Acute calculous cholecystitis: (2) Poison tristin dermatitis: PLAN: Patient does have small patches of poison tristin in her upper abdomen plan to [place] during surgery PLAN: Plan Okay for clears today we will plan for OR tomorrow. Reviewed the anatomy with the patient and discussed the procedure: laparoscopic cholecystectomy with possible cholangiograms, possible open. Review risks including but not limited to bleeding, infection, hernia, bile leak, retained gallstones requiring another procedure ERCP- Endoscopic Retrograde Cholangiopancreatography, injury to another organ (bile ducts, common bile duct, small bowel, etc.) and conversion to an open procedure. All questions were answered. Patient has been no further question at this time. Maria R Fletcher M.D. Pager: [phone] [facility] [address] [place] [address], [address] [place] [address] Office: [phone]
[2022-03-28] MEDS: 0.9% Normal Saline 1,000 ML 120 ML IV ×2 (12:01→23:00)
[2022-03-28] MEDS: Morphine 2 MG/ML Syringe IV (13:45)
[2022-03-28] MEDS: oxyCODONE 5 MG Tablet PO ×2 (16:23→20:41)
[2022-03-28] MEDS: 0.9% Saline Lock 10 ML Syringe IV (19:03)
[2022-03-29] VITALS (9 sets, daily range): BP systolic 113–123; BP diastolic 66–89; PULSE 53–80; RESP 16–18; TEMP 36.6–37.5; O2SAT 95–100; BMI 30.1
[2022-03-29] MEDS: Ondansetron 4 MG/2 ML Vial IV ×2 (02:27→08:39)
[2022-03-29] MEDS: oxyCODONE 5 MG Tablet PO ×2 (02:27→07:33)
[2022-03-29] MEDS: 0.9% Saline Lock 10 ML Syringe IV ×4 (02:27→09:46)
[2022-03-29] MEDS: Acetaminophen 325 MG Tablet 650 MG PO (02:32)
[2022-03-29 05:00] LABS: Absolute Lymphocyte Count 2.54 X10^3/uL (0.83-4.51); Absolute Neutrophil Count 7.2 X10^3/uL (2.0-7.7); Basophil# 0.03 X10^3/uL; Basophil% 0.3 % (0-1); Eosinophil# 0.07 X10^3/uL; Eosinophils% 0.7 % (0-5); Hematocrit 36.9 % (37-47); Hemoglobin 12.5 g/dL (12.0-15.0); Lymphocyte # 2.54 X10^3/ul (0.83-4.51); Lymphocyte % 23.8 % (19-41); Mean Corp Hgb Conc 33.9 g/dL (32-36); Mean Corpuscular Hgb 30.9 pg (27.0-32.0); Mean Corpuscular Volume 91.3 fL (81-99); Mean Platelet Vol. 10.4 fl (6.2-12.0); Monocyte# 0.78 X10^3/uL; Monocyte% 7.3 % (0-10); NRBC Flagged by Analyzer 0 % (0-5); Neutrophil # 7.21 X10^3/uL (2.7-7.7); Neutrophil % 67.6 % (47-70); Platelet Count 188 K/mm3 (150-450); RBC Distribution Width SD 40.7 fl (35.1-43.9); Red Blood Count 4.04 M/mm3 (4.2-5.4); White Blood Count 10.7 K/mm3 (4.4-11.0)
[2022-03-29 05:27] LABS: AST(SGOT) 32 U/L (15-37); Alanine Aminotransfer ALT/SGPT 41 U/L (13-56); Albumin, Serum 3.1 g/dL (3.2-5.0); Alkaline Phosphatase 68 U/L (45-117); Anion Gap 7 (5-15); BUN 8 mg/dL (7-18); BUN/Creat Ratio 9.1 RATIO (10-20); Bilirubin, Direct 0.33 mg/dL (0.00-0.30); Calcium,Total 8.5 mg/dL (8.5-10.1); Chloride 109 mmol/L (98-107); Creatinine, Serum 0.88 mg/dL (0.55-1.02); EST Glomerular Filtration Rate 81 mL/min (>60); Est Glom Filt Rate - Afr Amer 98 mL/min (>60); Estimated Creatinine Clearance 71.82 ml/min; Globulin 2.9 g/dL (2.2-4.2); Glucose 108 mg/dL (74-106); Potassium 3.7 mmol/L (3.5-5.1); Sodium Level 139 mmol/L (136-145)
--- NOTE | 2022-03-29 06:00 | EKG12_ITS ---
Test Reason : AM EKG Blood Pressure : / mmHG Vent. Rate : 052 BPM Atrial Rate : 052 BPM P-R Int : 162 ms QRS Dur : 092 ms QT Int : 426 ms P-R-T Axes : 052 075 061 degrees QTc Int : 396 ms Sinus bradycardia with sinus arrhythmia Otherwise normal ECG No previous ECGs available Confirmed by SHANEKA MENDIETA, NAYANA ([id number]), editor publications MARYLOU SANTIAGO ([id number]) on 03/30/2022 9:20:52 AM Referred By: Confirmed By:NAYANA MUNROE MD
--- NOTE | 2022-03-29 08:06 | RAD_ITS ---
STUDY: INTRAOPERATIVE CHOLANGIOGRAM. REASON FOR EXAM: Female, 26 years old. Laparoscopic cholecystectomy. FLUOROSCOPY TIME (if supplied): ( 7.4 seconds ) minutes/seconds. A cine loop of 29 images was submitted. TECHNIQUE: An intraoperative discogram was performed by the surgeon. Imaging was submitted. COMPARISON: None. FINDINGS: The intrahepatic biliary ducts are unremarkable. The common bile duct is unremarkable as well. No intraluminal filling defect is seen. There is free flow of contrast into the duodenum. RAD/Cholangiogram/ O R,Initial IMPRESSION: Unremarkable intraoperative cholangiogram. Electronically Signed: Joshua Kaye MD at 12:57 EDT ,
[2022-03-29] MEDS: Morphine 2 MG/ML Syringe IV ×2 (08:08→10:14)
--- NOTE | 2022-03-29 10:10 | CASEMGMT ---
RN CM Face to Face with patient for initial transition planning/care coordination assessment. RN CM introduced self and role at [facility]. Patient lying in bed, alert and oriented, at bedside. Patient willing to participate in assessment and is able to answer all questions appropriately. Care providers, pharmacy, and demographics verified. Patient wishes to discharge home, denies need for home health at this time. Patient states she has no further needs or concerns at this time. CM to follow for discharge planning needs that may arise. PCP: No PCP, list provide to patient and encouraged to get established with PCP Specialists: none Preferred Pharmacy: [facility] Insurance: [employer] Prescription Benefit: yes Living Will/HPOA: none LNOK: Living Arrangements: Patient lives with in a 2 story home with bed and bath on first floor. Patient states she is independent at home. Transportation: self, DME/HHC: Patient denies DME in the home. No previous HHC. Disposition Plan: Patient to discharge home with family support and follow-up plans in place. Kim BARNEY, RN, CM
--- NOTE | 2022-03-29 11:30 | GALL_PTH ---
PATIENT: AWAIS VILLASENOR LOC: MS3 U#:[id number] AGE/SX: 26/F ROOM: MS313 RE03/28/[address]: Dr. Maria R Fletcher MD : 1995 BED: 1 DIS: 03/29/2022 SPEC #: [id number] RECD: 03/29/22 14:02 STATUS: TERESA PHIL #: [id number] SERENA: 03/29/22 11:[address]: Maria R Fletcher DEPT: SURGICAL PATHOLOGY RECD BY: Marivel Mejia ENTERED: 03/30/22 07:49 SP TYPE: FESTUS HERNANDEZ DR: No Primary Care Phys Tissues: Gallbladder, NOS Procedures: Surgery Specimen Level III HEADER OPERATION: Laparoscopic cholecystectomy with IOC PRE-OP DIAGNOSIS: Acute calculous cholecystitis TISSUE SUBMITTED: Gallbladder MICROSCOPIC DIAGNOSIS Gallbladder, cholecystectomy: Acute and chronic cholecystitis and cholelithiasis. SJ:asael 03/31/2022 MICROSCOPIC DESCRIPTION Slides are reviewed. GROSS DESCRIPTION Received is one container labeled with the patient's name and designated gallbladder. The specimen consists of a gallbladder measuring 8.5 cm in length and up to 3.5 cm in diameter. The gallbladder is previously, partially opened. The external surface is pink-fontaine, smooth and glistening for the most part. Focally it is granular, hemorrhagic and contains cautery artifact. Bile is not present in the gallbladder. The mucosa is focally congested. Present in the container are two ovoid to multifaceted, brownish-black stones each measuring 2 cm in greatest dimension. The gallbladder wall measures up to 0.5 cm in thickness. Sourcing Associate sections from the gallbladder and the cystic duct are submitted in one cassette. / SJ:rg 03/30/2022 TC:2 [facility]: [id number]
[2022-03-29] MEDS: Bupivacaine 0.25% 30 ML Vial (12:56)
--- NOTE | 2022-03-29 13:04 | PCM.OPRPT ---
Report of Operation Date of Procedure: 03/29/22 Pre-Operative Diagnosis: Acute cholecystitis Post-Operative Diagnosis: Same Surgery/Procedure Performed:: Laparoscopic cholecystectomy with cholangiograms Surgeon: Maria R Fletcher high pressure operator: Chidi Vega Type of Anesthesia: General/Supplemental Anesthesiologist: Joaquín Orosco Special Medications: Zosyn 3.375 g IV every 8 hours for acute cholecystitis Specimen's removed: Gallbladder and stones Estimated Blood Loss (mL): 40 cc Description of Procedure: Indications: this is a 26 year-old female who developed abdominal pain/nausea/vomiting and on workup was found to have cholelithiasis, with a normal common bile duct. Laparoscopic cholecystectomy was elected. Description procedure: The patient was placed on operating table in supine position. A timeout was completed verifying correct patient, procedure, site, position and special equipment prior to beginning procedure. General Anesthesia was induced. The abdomen was prepped and draped in usual sterile fashion. Ioban was placed to the patient's poison tristin dermatitis on her abdomen. An incision was made in the natural skin line above the umbilicus. The fascia was elevated and incised. The peritoneum was elevated and incised. Entry into the peritoneum was confirmed visually and no bowel was noted in the vicinity of the incision. Sheets trocar was placed. The abdomen was insufflated with carbon dioxide to a pressure of 12-15 mmHg. Patient tolerated insufflation well. The laparoscope was then inserted and abdomen inspected. No injuries from initial trocar placement were noted. Additional trochars were then inserted in the following locations 5 mm trocar in the epigastrium and 2 more 5 mm trochars along the right costal margin. The abdomen was inspected no abnormalities were found. The table is placed in reverse Trendelenburg position with the right side up. The gallbladder noted to be tense and distended and aspiration was needle to decompress the gallbladder to allow the dome to be grasped. The dome of the gallbladder was grasped with atraumatic grasper passed through the lateral port and retracted over the dome of the liver. Infundibulum was then grasped with atraumatic grasper through the midclavicular port and retracted to the right lower quadrant. This maneuver exposed Calot's triangle. The peritoneum overlying the gallbladder infundibulum was then incised and cystic duct and artery identified and circumferentially dissected. Robledo catheter was used for cholangiograms. The cholangiogram showed good filling of the common bile duct into the duodenum with no filling defects, good filling of the right and left bile ducts as well. The cystic duct and artery were then doubly clipped and divided close to the gallbladder. The gallbladder then dissected from its peritoneal attachments by electrocautery. There was some bleeding at the distal aspect of the edge of the liver where the fundus of the gallbladder connected. [place] was used for hemostasis. Hemostasis was checked and the gallbladder and contained stones were removed using the endoscopic retrieval bag through the umbilical port. The umbilical port was enlarged slightly to accommodate the stones. The gallbladder is passed off table as specimen. The gallbladder fossa was irrigated with saline and hemostasis obtained. There is no evidence of bleeding from the gallbladder fossa or cystic artery leakage of bile from the cystic duct stump. Secondary trochars removed under direct vision. No bleeding was noted the trocar sites. The laparoscope was withdrawn and umbilical trocar removed. The abdomen was allowed to collapse. The fascia of the 12 mm trocar was closed with 2 [id number] 0 Vicryl suture. The skin was closed with sutures of 4-0 Monocryl and Steri-Strips. The patient was extubated. The patient tolerated procedure well and was taken to the postanesthesia care unit in stable condition. Complications none
--- NOTE | 2022-03-29 13:06 | DCINST_ITS ---
Discharge Instructions Diet Discharge Diet: Light diet - advance as tolerated Activity Discharge Activity: May Not Drive (while taking narcotic pain medications.) May shower in (days): 1 Lifting Restrictions: no lifting >20 lbs x 2 wks, no strenuous exercise for 4 wks Dressing / Incision Call your doctor if your incision/area has: Continuous Slow Oozing, Sudden Increased Bleeding, Increased Pain/ Swelling, Increased Redness, Foul Smelling Discharge and Swelling at the incision site Call your doctor if you observe: Fever of 101 or Higher Remove Dressing in: 2 days Cleanse incision/area with: Soap & Water Additional Dressing/Incision Instructions:: Steri-Strips will fall off in 7 to 10 days, if they do not fall off okay to remove after 10 days. Follow Up Care Please Follow Up With: Maria R Fletcher MD When: Call the office for a follow-up appointment 2 weeks; after 5 PM and on the weekends call [phone] with any concerns. Test Results: Test results from this visit will be discussed in further detail at your follow- up appointment, if applicable. Discharge Plan Admission Admit Date/Time: 03/28/22 08:40 Attending Provider: Maria R Fletcher Primary Care Provider: Antoinette PhysicianCaitlin Primary Discharge Orders/Prescriptions Prescriptions: New oxycodone-acetaminophen 5-325 mg tablet 1 - 2 tab PO Q6H PRN (Reason: pain) 3 Days Qty: 14 0RF Referrals / Follow Up: Care PhysicianCaitlin Primary [Primary Care Provider] - Disposition Disposition (needs filled in before D/C Order can be placed): Home, Self Care
== END 2022-03-29 17:30 | disposition home or self-care (01) ==
LOC: ED 03:54 → MS3 08:48
PROVIDERS: Admitting Provider Surgery; Emergency Provider Emergency Medicine; Visit Provider Surgery
PROC: (CPT 47610; principal; 2022-03-29 11:10)
DX: K80.12 Calculus of gallbladder with acute and chronic cholecystitis without obstruction (principal); L23.7 Allergic contact dermatitis due to plants, except food
CPT/HCPCS: 47563; 00790; 36415; 74300; 76000; 76705; 80048; 80053; 80076; 83690; 85025; 88304; 93005; 96361; 96365; 96366; 96375; 96376; 99218; 99284; J7030; A4216; G0378; J2405